=== PATIENT | male | born 1985 | race Caucasian/White ===

== ENCOUNTER → 2019-06-03 | Outpatient (CLI) | payer OTHER ==
--- NOTE | 2019-06-05 15:57 | MR ---
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 TECHNIQUE: Multiplanar, multisequence imaging of the left shoulder is performed without contrast. FINDINGS: Rotator Cuff: Distal supraspinatus and infraspinatus tendons are intact. Some increased signal distal supraspinatus tendon noted. Subscapularis tendon is intact. Rotator cuff muscle bulk is preserved. Acromioclavicular Joint: Moderate narrowing. Underlying fat plane maintained. No significant spurring . Type II downsloping acromion however is noted. \ Glenohumeral Joint: Fairly moderate sized joint effusion with multiple intra-articular round lesions of low T1 and T2 signal measuring up to 5 mm in size. Probable calcified or ossified intra-articular loose bodies most prominent extending inferiorly. Mild to moderate narrowing most prominent inferior glenohumeral joint with small spur coronal image 18 inferior medial humeral head. Labrum: The labrum appears grossly intact given limitation of non-arthrogram study. Biceps Tendon: The long head of biceps is in normal location within bicipital groove. Bone marrow signal: Heterogeneity consistent with red marrow reconversion. Other: No additional significant abnormality is appreciated. IMPRESSION: 1. 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 2. Tendinosis distal supraspinatus tendon. No full-thickness rotator cuff or labral tear. 3. Type II downsloping acromion.
== END | disposition home or self-care (01) ==
LOC: RADMRIMAIN 18:32
PROVIDERS: ATTEND Orthopaedic Surgery Sports Medicine
DX: M12.812 Other specific arthropathies, not elsewhere classified, left shoulder (principal); M93.91 Osteochondropathy, unspecified of shoulder